=== PATIENT | male | born 1980 | race African-American/Black ===

== ENCOUNTER 2021-04-10 13:23 | Emergency (ER) | payer OTHER ==
[~2021-04-10] VITALS: Ht 185.4 cm; Wt 107.5 kg
--- NOTE | 2021-04-10 13:25 | NUR ---
Jaquan DEJESUS via gurney to bed 08.
[2021-04-10 13:31] VITALS: BP 116/90
--- NOTE | 2021-04-10 13:31 | NUR ---
41 Y/O MALE BIBA C/O CHEST PAIN X2 DAYS. EMS GAVE 0.4MG NITRO TWICE AND 324MG ASPIRIN. PER EMS PAIN WENT FROM 10/10 TO BURNING 6/10 PAIN AFTER MEDICATED. IV INSERTED BY EMS LT HAND 20G, INTACT, PATENT. MEDHX: HIGH CHOLESTEROL, ANXIETY NKA
--- NOTE | 2021-04-10 14:15 | NUR ---
ERMD AT BEDSIDE EXAMINING PT
[2021-04-10] MEDS ORDERED: FAMOTIDINE 20 MG TAB PO ONE (14:25)
--- NOTE | 2021-04-10 14:31 | NUR ---
XRAY AT BEDSIDE
--- NOTE | 2021-04-10 14:40 | NUR ---
LAB AT BEDSIDE
[2021-04-10 15:00] LABS: BASOPHILS % (AUTO) 0.4 % (0.0-2.0); EOSINOPHILS # (AUTO) 0.2 K/uL (0-0.4); EOSINOPHILS % (AUTO) 2.4 % (0.0-4.0); HEMOGLOBIN 13.8 g/dL (12.0-18.0); LYMPHOCYTES # (AUTO) 2.3 K/uL (2.0-11.5); LYMPHOCYTES % (AUTO) 33.5 % (20.5-51.1); MEAN CORPUSCULAR HEMOGLOBIN 29 pg (27-31); MEAN CORPUSCULAR HGB CONC 34 g/dL (33-37); MEAN CORPUSCULAR VOLUME 86.1 fL (80-94); MONOCYTES # (AUTO) 0.4 K/uL (0.8-1.0); MONOCYTES % (AUTO) 5.7 % (1.7-9.3); NEUTROPHILS # (AUTO) 4.1 K/uL (1.8-7.7); PLATELET COUNT (AUTO) 213 K/uL (140-450); RED BLOOD CELL COUNT(AUTO) 4.76 MIL/uL (4.20-6.10); RED CELL DISTRIBUTION WIDTH 13.7 % (11.6-13.7)
[2021-04-10 15:16] LABS: ALBUMIN 3.4 g/dL (3.4-5.0); ANION GAP 12.1 (8-16); CARBON DIOXIDE 27.1 mmol/L (21-32); CREATININE 1.1 mg/dL (0.6-1.3); POTASSIUM 4.2 mmol/L (3.5-5.1); TOTAL BILIRUBIN 0.2 mg/dL (0.0-1.0)
--- NOTE | 2021-04-10 15:40 | NUR ---
PT AMBULATED TO RESTROOM
--- NOTE | 2021-04-10 17:15 | NUR ---
PT TAKEN TO CT SCAN VIA W/C
--- NOTE | 2021-04-10 17:30 | NUR ---
PT RETURNED FROM CT
[2021-04-10] MEDS ORDERED: FAMO-90 PO (17:57)
[2021-04-10] MEDS ORDERED: ACET-1182 PO (17:58)
[2021-04-10 18:12] VITALS: BP 116/90
--- NOTE | 2021-04-10 18:12 | NUR ---
Patient discharged with v/s stable. Written and verbal after care instructions given and explained. Patient alert, oriented and verbalized understanding of instructions. Ambulatory with steady gait. All questions addressed prior to discharge. ID band removed. Patient advised to follow up with PMD. Rx of ACETAMINOPHEN AND TYLENOL given. Patient educated on indication of medication including possible reaction and side effects. Opportunity to ask questions provided and answered.
== END 2021-04-10 18:12 | disposition home or self-care (01) ==
LOC: EDBD 13:23 → MED 13:23
DX: R07.89 Other chest pain (principal); R06.02 Shortness of breath; F20.9 Schizophrenia, unspecified; F32.9 Major depressive disorder, single episode, unspecified
CPT/HCPCS: 36415; 71045; 71275; 80053; 83690; 83880; 84484; 85025; 85379; 93005; 99285; Q9967